=== PATIENT | female | born 1985 | race Hispanic/Latino ===

== ENCOUNTER 2023-04-07 22:12 | Inpatient (IN) | payer MEDICAID, OTHER ==
[2023-04-07] MEDS ORDERED: Diphenoxylate HCl/Atropine Tablet PO PRN (23:04)
[2023-04-07] MEDS ORDERED: Acetaminophen 500 MG TAB PO PRN (23:04)
[2023-04-07] MEDS ORDERED: Ondansetron PF 4 MG/2 ML Vial IVP PRN (23:04)
[2023-04-07] MEDS ORDERED: Promethazine HCl 25 MG/ML VIAL IM PRN (23:04)
[2023-04-07] MEDS ORDERED: Misoprostol 200 MCG TAB PR PRN (23:04)
[2023-04-07] MEDS ORDERED: Lidocaine 1% (PF) 30 ML VIAL SC PRN (23:04)
[2023-04-07] MEDS ORDERED: Tranexamic Acid 1,000 MG/10 ML VIAL IVP PRN (23:04)
[2023-04-07] MEDS ORDERED: Carboprost 250 MCG/ML AMP IM PRN (23:04)
[2023-04-07] MEDS ORDERED: Methylergonovine 0.2 MG/ML VIAL IM PRN (23:04)
[2023-04-07] MEDS ORDERED: fentaNYL 50 mcg/mL 1 mL Vial SLOW IVP PRN (23:04)
[2023-04-07] MEDS ORDERED: Docusate 100 MG CAP PO PRN (23:04)
[2023-04-07] MEDS ORDERED: hydrALAZINE 20 MG/ML VIAL SLOW IVP PRN (23:04)
[2023-04-07] MEDS ORDERED: fentaNYL/Ropivacaine Epidural 100 ML ONE (23:05)
[2023-04-07 23:08] VITALS: BMI 27.7
[2023-04-07] MEDS ORDERED: Oxytocin 30 units/NS 500 ML 500 ML IV SCH (23:15)
[2023-04-07] MEDS ORDERED: Lactated Ringer's 1,000 ML IV SCH (23:15)
[2023-04-07] MEDS ORDERED: Penicillin G Potassium 5 MILL.UNITS in Sodium Chloride 0.9% 100 ML IVPB SCH (23:15)
[2023-04-07 23:45] LABS: Hematocrit 37.9 % (34.9-44.5); Hemoglobin 12.7 g/dL (12.0-15.5); Mean Corpuscular HGB CONC 33.5 g/dL (32.0-36.0); Mean Corpuscular Hemoglobin 28.9 pg (27.0-33.0); Mean Corpuscular Volume 86.1 fl (81.6-98.3); Mean Platelet Volume 10.9 fl (7.4-10.4); Platelet Count 260 10x3/uL (150-450); RBC Distribution Width 13.4 % (11.5-14.5); White Blood Cell (WBC) Count 13.1 10x3/uL (3.5-10.5)
[2023-04-08 00:14] LABS: HBSAg Index 0.17 S/CO (0-0.99); Hep B Surf Ag - L&D Non-Reactive S/CO (NonReactive)
[2023-04-08 00:16] LABS: Syphilis Antibody Nonreactive (Nonreactive); Syphilis Antibody Index 0.04 S/CO (<1.00 Non-Reactive)
[2023-04-08] MEDS ORDERED: fentaNYL/Ropivacaine Epidural 100 ML ONE (02:35)
[2023-04-08] MEDS ORDERED: Acetaminophen 325 MG TAB PO PRN (03:11)
[2023-04-08] MEDS ORDERED: ePHEDrine Sulfate 50 MG/10 ML VIAL SLOW IVP PRN (03:11)
[2023-04-08] MEDS ORDERED: diphenhydrAMINE 50 MG/ML VIAL IVP PRN (03:11)
[2023-04-08] MEDS ORDERED: Ondansetron PF 4 MG/2 ML Vial IVP PRN (03:11)
[2023-04-08] MEDS ORDERED: Promethazine HCl 25 MG/ML VIAL IM PRN (03:11)
[2023-04-08] MEDS ORDERED: Moisturizing Cream (Eucerin) 113 GM JAR TOP PRN (03:11)
[2023-04-08] MEDS ORDERED: Lactated Ringer's 500 ML IV PRN (03:11)
[2023-04-08] MEDS ORDERED: Naloxone HCl 0.4 mg/ml Vial IVP PRN ×2 (03:11)
[2023-04-08] MEDS ORDERED: Communication Order-Pharmacy FS SCH (03:15)
[2023-04-08] MEDS ORDERED: Penicillin G 2.5 MILL.units 2.5 MILL.UNITS in Premix 1 BAG IVPB SCH (03:15)
[2023-04-08] MEDS ORDERED: fentaNYL 2 mcg/Ropivacaine 0.2% Epidural 100 ML CADD EPIDURAL SCH (03:15)
[2023-04-08] MEDS ORDERED: Milk Of Magnesia 30 ML UDCUP PO PRN (08:07)
[2023-04-08] MEDS ORDERED: Boostrix 0.5 ML (Tdap) VIAL (>/=7 yrs of age) IM ONE (08:07)
[2023-04-08] MEDS ORDERED: Bisacodyl 10 MG SUPP PR PRN (08:07)
[2023-04-08] MEDS ORDERED: hydrALAZINE 20 MG/ML VIAL SLOW IVP PRN (08:07)
[2023-04-08] MEDS: Ibuprofen 800 MG TAB PO SCH ×2 (08:55→17:02)
[2023-04-08] MEDS: Docusate 100 MG CAP PO SCH (08:56)
[2023-04-08] MEDS ORDERED: Ferrous Sulfate 325 MG TAB PO SCH (09:00)
[2023-04-08] MEDS: Ferrous Sulfate 325 MG TAB PO SCH (17:03)
[2023-04-09] MEDS: Ibuprofen 800 MG TAB PO SCH ×2 (00:08→09:30)
[2023-04-09] MEDS: Docusate 100 MG CAP PO SCH ×2 (00:08→09:31)
[2023-04-09 07:45] VITALS: BP 103/54; TEMP 97.5
[2023-04-09] MEDS: Ferrous Sulfate 325 MG TAB PO SCH (09:35)
== END 2023-04-09 13:05 | disposition home or self-care (01) | DRG 807 ==
LOC: CSHLD/OP 22:12 → CSHLD 23:04 → CSHPED 04-08 07:45
PROVIDERS: ADMIT Obstetrics & Gynecology; ATTEND Obstetrics & Gynecology
PROC: 10D07Z6 Extraction of Products of Conception, Vacuum, Via Natural or Artificial Opening (ICD-10-PCS; principal; 2023-04-08)
DX: O69.81X0 Labor and delivery complicated by cord around neck, without compression, not applicable or unspecified (principal); Z37.0 Single live birth; O76 Abnormality in fetal heart rate and rhythm complicating labor and delivery; Z3A.39 39 weeks gestation of pregnancy; O77.0 Labor and delivery complicated by meconium in amniotic fluid
CPT/HCPCS: 85027; 86780; 86850; 86900; 86901; 87340; 99285; J3010